=== PATIENT | female | born 1990 | race Caucasian/White ===

== ENCOUNTER 2021-12-16 21:27 | Emergency (ER) | payer OTHER, SELFPAY ==
--- NOTE | 2021-12-16 | ECG_ITS ---
Test Reason : tachycardia Blood Pressure : / mmHG Vent. Rate : 137 BPM Atrial Rate : 137 BPM P-R Int : 134 ms QRS Dur : 088 ms QT Int : 298 ms P-R-T Axes : 047 002 052 degrees QTc Int : 449 ms Sinus tachycardia Otherwise normal ECG No previous ECGs available Referred By: Generic ED Physician Electronically Signed By:Napoleon Davenport
[2021-12-16 21:30] VITALS: BP 125/70; PULSE 140; RESP 24; TEMP 36.7; O2SAT 100; BMI 33.3
--- NOTE | 2021-12-16 21:47 | ED_ITS ---
HPI - General Adult General Chief complaint: General Medical Stated complaint: sob Time Seen by Provider: 12/16/21 21:47 Source: patient Mode of arrival: ambulatory Limitations: no limitations History of Present Illness HPI narrative: 31-year-old female who presents emergency department for evaluation of adverse effects after vaping marijuana. The patient states that she uses a cartridge system to deliver the marijuana and vapes marijuana twice a day. She states that approximately 3 hours prior to coming to the emergency department she did use her marijuana vape system. She states that after vaping crease swallowed a small amount of the resin and she has never done this before. She states that approximately 2 hours after swallowing the resin she had difficulty swallowing and she was concerned that she might have esophageal obstruction. She states that she then had a panic attack. Has a history of anxiety and panic attacks. She states that she was short of breath and felt like she could not breathe in an out. She felt lightheaded and dizzy. She states that her face hands and feet were numb. She also had cramping in her hands. She states that she also feels very high much higher than she usually does after vaping. complaint: Numbness/cramping Onset (ago): hour(s) (3) Location: face, upper extremity and lower extremity Radiation: non-radiation Severity: severe Quality: constant and other (Numbness) Relieving factors: none Exacerbating factors: none Associated symptoms: shortness of breath and other (Difficulty swallowing, lightheadedness, feeling high) Treatments prior to arrival: none Related Data Allergies Allergy/AdvReac Type Severity Reaction Status Date / Time No Known Allergies Allergy Verified 12/16/21 22:04 Review of Systems Review of Systems: Yes all other systems are reviewed and are negative [facility] Past Medical History FOR[facility] Narrative: Past medical history: Hypertension, hyperlipidemia, anxiety, panic attacks. Past surgical history: None. Social history: She denies tobacco use. She denies alcohol use. She vapes marijuana twice a day. Medical History Depression Surgical History Transgender, status post sex reassignment surgery Social History Social History Advance Directives: No Advance Directives Information Provided: No Physical Exam ED Vital Signs: Vital Signs - 24 hr 12/16/21 21:30 12/16/21 22:25 Temperature 98.1 F Pulse Rate 140 H 105 H Respiratory Rate 24 H 12 Blood Pressure 125/70 110/64 Pulse Oximetry 100 97 BMI result Body Mass Index 33.3 Const Other: Awake, alert, female patient, very pleasant and cooperative, does not appear to be in distress, answers all questions appropriately HENTX Head: Yes normal to inspection, Yes normocephalic and Yes atraumatic Ears: external ears normal General nose exam: Normal external nose present Face and sinus: Yes normal facial exam Mouth: Normal oral and palatal mucosa present Throat: Yes posterior oropharynx normal Eyes General: appearance normal, both eyes and all related structures Pupils: Equal, round and reactive pupils present Neck Neck: Yes normal visual inspection, Yes no lymphadenopathy, Yes trachea midline and Yes supple Chest Chest palpation & inspection: normal inspection of the chest and normal palpation of entire chest wall Resp Effort & Inspection: normal respiratory effort and able to speak in complete sentences Auscultation: clear to auscultation bilaterally Cardio Rate: regular rate Rhythm: regular rhythm Heart sounds: S1 normal heart sound present, S2 normal heart sound present and no murmurs GI Inspection: Yes normal to inspection Palpation (GI): Soft to palpation, nontender and no guarding Auscultation: normal bowel sounds General: Yes no CVA tenderness Back/Spine/Pelvis Back: no CVA tenderness Skin General skin exam: no rashes or lesions noted Neuro Cranial nerves: Yes CN's II-XII intact bilaterally and Yes Equal, round and reactive pupils present Cognition (Neuro): normal cognition Motor exam (neuro): 5/5 motor strength present throughout Extrem General: Yes normal to inspection Psych Appearance: grossly normal Speech and movement: Normal speech and movement present Affect: normal affect Attitude: cooperative Thought process: Normal thought process present Thought content: Normal thought content present Course Course Course Narrative: 31-year-old female who vapes marijuana twice a day, who vape marijuana 3 hours prior and accidentally swallowed some of the marijuana resin. Approximately 2 hours after swallowing the resident she then developed a panic attack. My impression is that she probably accidentally overdosed on THC secondary to swallowing concentrated marijuana resin. Patient does have a history of anxiety and panic attacks. On presentation the patient was tachycardic with a pulse of 140 and was hyperventilating with a respiratory rate of 24. By the time I evaluated the patient her pulse and respiratory rate improved, she does appear to be high secondary to the marijuana but otherwise is pleasant and cooperative and answers all questions appropriately. The patient was ordered to get Ativan 2 mg orally and I believe this will improve her symptoms. The patient will be observed for approximately 1-2 hours and she will be given repeat doses of Ativan as needed. At this time, I do not think that she has any dysphagia caused by the resident and I believe this symptom was more related to her panic/anxiety attack which was triggered by the accidental THC ingestion. 2307: Patient is feeling significantly better after the above treatment. The patient is able to swallow liquids without any difficulty. The patient will be discharged home. Discharge Plan Discharge Clinical Impression: Acute hyperventilation syndrome, Anxiety attack Ingestion, drug, inadvertent or accidental Qualifiers: Encounter type: initial encounter Qualified Code(s): T50.901A - Poisoning by unspecified drugs, medicaments and biological substances, accidental (unintentional), initial encounter Patient Disposition: Home, Self-Care Instructions: Hyperventilation (ED) Additional Instructions: At this time, I believe that your anxiety/hyperventilation attack was triggered by accidentally ingesting a high dose marijuana/THC. You were treated with Ativan 2 mg orally. You should go home and sleep and hopefully your symptoms will resolve. Do not use anymore marijuana this evening. Follow-up with your doctor in 2 days. Please return to the emergency department if your symptoms get worse or if you develop any symptoms that are concerning to you.
[2021-12-16] MEDS: LORazepam 1 MG TABLET 2 MG PO (22:16)
[2021-12-16 22:25] VITALS: BP 110/64; PULSE 105; RESP 12; O2SAT 97
--- NOTE | 2021-12-16 23:03 | PC.NURSE ---
Pt feeling better, requesting to be discharged, Pt n no apparent distress
[2021-12-16 23:08] VITALS: BP 118/63; PULSE 98; RESP 14; O2SAT 98
== END 2021-12-16 23:16 | disposition home or self-care (01) ==
PROVIDERS: Emergency Provider Emergency Medicine Emergency Medical Services; PCP Nurse Practitioner Family
DX: F45.8 Other somatoform disorders (principal); F41.9 Anxiety disorder, unspecified; T40.711A Poisoning by cannabis, accidental (unintentional), initial encounter; U07.0 Vaping-related disorder; Y92.9 Unspecified place or not applicable
CPT/HCPCS: 93005; 99284